=== PATIENT | female | born 1965 | race Caucasian/White ===

== ENCOUNTER 2018-10-28 11:05 | Emergency (ER) | payer BC, SELFPAY ==
[2018-10-28 11:10] VITALS: BP 138/82; PULSE 88; RESP 15; TEMP 36.9; O2SAT 99; BMI 20.1
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
--- NOTE | 2018-10-28 12:18 | DI.RAD.S_ITS ---
PROCEDURE: XR CLAVICLE RT INDICATIONS: Clavicle fracture with worsening pain TECHNIQUE: 2 views of the clavicle were acquired. COMPARISON: None available. FINDINGS: Bones: There is a fracture of the right clavicular shaft with inferior displacement of the distal component by one shaft width. There is also overlap of the fracture fragments by approximately 1.5 cm. The acromioclavicular joint appears congruent. Soft tissues: No suspicious soft tissue calcifications. IMPRESSION: 1. Right clavicular shaft fracture as described. Recommend comparison to prior outside studies to evaluate for interval change in position. Dictated by: Joshua Soares M.D. on 10/28/2018 at 12:33 Approved by: Joshua Soares M.D. on 10/28/2018 at 12:34
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
[2018-10-28 13:11] VITALS: BP 112/66; PULSE 74; RESP 16; TEMP 36.4; O2SAT 98
== END 2018-10-28 13:15 | disposition home or self-care (01) ==
PROVIDERS: Emergency Provider Nurse Practitioner Family
DX: S42.001A Fracture of unspecified part of right clavicle, initial encounter for closed fracture (principal); V49.9XXA Car occupant (driver) (passenger) injured in unspecified traffic accident, initial encounter
CPT/HCPCS: 73000; 99282; 99283